=== PATIENT | male | born 1960 | race African-American/Black ===

== ENCOUNTER 2020-06-01 06:50 | Outpatient (REF) | payer MEDICARE, MEDICAID, SELFPAY | END 2020-06-01 06:51 | disposition home or self-care (01) | LOC: HO.LAB 06:50 | PROVIDERS: PCP Nurse Practitioner Family; Visit Provider Internal Medicine | DX: Z20.828 Contact with and (suspected) exposure to other viral communicable diseases (principal) | CPT/HCPCS: C9803; U0003 ==

== ENCOUNTER 2021-07-08 23:14 | Inpatient (IN) | payer MEDICARE, MEDICAID, SELFPAY ==
--- NOTE | 2021-07-09 01:52 | PC.ADMIT ---
Patient is a 60 year old male , who came from [facility] by ambulance. Admitted for depression and SI He is covid negative. States a medical history of lupus, high cholesterol, high blood pressure and lower back pain. He dose not have a current provider and is not being treated for any medical concern. Has past history of suicide attempt. He currently is not taking any medications. Poly substance use with positive tox screen cocain and cannabis.Denies auditory or visual hallucinations. Reports poor sleep and appetite. Patient admission was done by crisis assessment due to patient not wanting to answer questions at maria alejandra of his arrival to .
[2021-07-09 08:00] VITALS: BP 143/87; PULSE 69; RESP 16; TEMP 36.4; O2SAT 97
[2021-07-09] MEDS: Nicotine 21 MG PATCH.TD24 TRANSDERMA (10:07)
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
[2021-07-09] MEDS: Nicotine Polacrilex 2 MG GUM BUCCAL (19:37)
[2021-07-09 20:31] LABS: Vitamin D 25-OH Total 13.1 ng/mL (>30)
[2021-07-09 20:38] LABS: Vitamin B12 547 pg/mL (200-900)
[2021-07-09 22:00] VITALS: BP 145/75; PULSE 78; TEMP 36.8
[2021-07-10 06:00] VITALS: BP 139/81; PULSE 62; RESP 14; TEMP 36.6; O2SAT 98
[2021-07-10] MEDS: Nicotine 21 MG PATCH.TD24 TRANSDERMA ×2 (09:20→16:35)
--- NOTE | 2021-07-10 12:39 | HO.PSYCHPN ---
Subjective Subjective Date of Service: 07/10/21 Reason For Visit: Section 12 SI Subjective Notes: Conditional Voluntary Interim History: Stone has been refusing medication and does not participate in any aspect of treatment. There has been no behavioral dyscontrol. Review of Systems Review of Systems CVS: No c/o chest pain, palpitations, no SOB DATA INTEGRATION ARCHITECT: No c/o dizziness, headache GI: No c/o Nausea, Vomiting, diarrhea, constipation or heartburn -Denies hx of seizures -Denies hx of TBI/ concussion -Denies hx of cardiac issues other than HTN Mental Status Exam Mental Status Exam Narrative: A&O. In hospital attire, overweight, not malodorous. Good eye contact, attentive. No Tics or Tremors. No abnormal involuntary movements. Somewhat withdrawn and difficult to engage but ultimately cooperative and disclosing. Non-pressured speech, spontaneous with regular rate and rhythm, normal volume and prosody. No prolonged speech latency or dysarthria. Mood is ?depressed,? affect is constricted. Denies SI/SIB/HI upon inquiry. Denies A/VH or delusional thought content. Thoughts are coherent, organized, future oriented. No known cognitive or memory impairment. Insight/ Judgment fair and adequate. Diagnostics Vital Signs (24Hr): Vital Signs - 24 hr 07/09/21 22:00 07/10/21 06:00 Temperature 98.2 F 97.9 F Pulse Rate 78 62 Respiratory Rate 14 Blood Pressure 145/75 H 139/81 Pulse Oximetry 98 Labs Labs: Laboratory Results - last 48 hr 07/09/21 07/09/21 19:51 19:51 Vitamin B12 547 25-OH Vitamin D Total 13.1 Medications Medications Current Medications Acetaminophen (Acetaminophen 325 Mg Tablet) 650 mg PO Q6H PRN PRN Reason: Headache/Pain Mild Scale (1-3) Al Hydroxide/Mg Hydroxide (Magnesium Hydrox/Alum Hydrox 30 Ml Oral.Susp) 30 ml PO Q6H PRN PRN Reason: Heartburn/Nausea Hydroxyzine HCl (Hydroxyzine Hcl 50 Mg Tablet) 50 mg PO TID PRN PRN Reason: Anxiety Magnesium Hydroxide (Milk Of Magnesia 30 Ml Oral.Susp) 30 ml PO DAILY PRN PRN Reason: Constipation Nicotine (Nicotine 21 Mg Patch.Td24) 21 mg TRANSDERMA DAILY NEDRA Last Admin: 07/10/21 09:20 Dose: 21 mg Documented by: Nicotine Polacrilex (Nicotine Polacrilex 2 Mg Gum) 2 mg BUCCAL Q2H PRN PRN Reason: nicotine craving Last Admin: 07/09/21 19:37 Dose: 2 mg Documented by: Trazodone HCl (Trazodone Hcl 50 Mg Tablet) 50 mg PO BEDTIME PRN PRN Reason: Insomnia Allergies Allergies Allergy/AdvReac Type Severity Reaction Status Date / Time No Known Allergies Allergy Verified 07/09/21 02:00 Assessment & Plan Assessment & Plan (1) Cocaine use disorder: Status: Acute Code(s): F14.10 - Cocaine abuse, uncomplicated (2) MDD (major depressive disorder), recurrent episode, moderate: Status: Acute Code(s): F33.1 - Major depressive disorder, recurrent, moderate Assessment and Plan: Stone is a 60 y.o. Male who carries a dx of MDD, recurrent and cocaine use disorder. Pt disclosed increased depression and SI to his clinician at [facility], who called [facility] crisis and pt was brought to [facility] ED via ambulance. He reports sx of depression are chronic and intermittent and that he is usually able to wait for them to pass, however has been feeling more lonely and hopeless. He states he is often mistrustful of providers and people, identifies as a loner. Has supports and says he loves his work. He is future oriented, as he would like to be a aboriginal home school liaison officer/ peer support for people who are struggling with depression. Pt does not have outpt psych services. Hx of outpt therapy. Denies having benefit on past med trials. Plan: Discussed medications options for treating depression, however pt states he does not want to be on psychotropic medications due to past med trials and having SE on meds. Has not trialed lamictal, however he is not interested in this due to risk of rash. Pt reports he participated in individual outpt therapy for two years and found this helpful, would be interested in re-starting therapy. Discussed referral to [facility]. Will order vit B12 and vit D levels, as pt reports hx of low vit D but does not think he ever took supplements.?Would benefit from referral to Recovery Team. EKG ordered as this was not sent from [facility] and pt had cocaine in his system on arrival. Monitor response to medications. Monitor for safety in the milieu. Discharge on stabilization. Patient seen. Chart reviewed. Discussed with team. Obtain collateral contact info?as needed 07/10/21 No changes to the above I spent minutes with the patient and/or on the patient floor today, greater than?50% of which was spent counseling/coordinating care. Patient educated on: diagnosis and medication risk/benefits Informed Consent: does not understand Reason for contiued inpatient stay Substantial Risk for: rapid decompensation
[2021-07-10] MEDS: Nicotine Polacrilex 2 MG GUM BUCCAL ×2 (13:51→20:12)
[2021-07-10 20:10] VITALS: BP 131/74; PULSE 77; TEMP 36.8
[2021-07-11] MEDS: traZODone HCL 50 MG TABLET PO ×2 (00:08→01:22)
[2021-07-11] MEDS: Magnesium Hydrox/Alum Hydrox 30 ML ORAL.SUSP PO ×2 (00:09→23:12)
[2021-07-11 11:17] VITALS: BP 133/73; PULSE 97; RESP 18; TEMP 37; O2SAT 100
[2021-07-11] MEDS: Acetaminophen 325 MG TABLET 650 MG PO (14:51)
--- NOTE | 2021-07-11 18:54 | P.PNPSI_ITS ---
Subjective Subjective Date of Service: 07/11/21 Reason For Visit: Section 12 SI Subjective Notes: Conditional Voluntary Interim History: Stone has been more engaged with treatment. He reports that he has not been sleeping and that trazodone gives him a headache. We agreed to seroquel. There has been no behavioral dyscontrol. 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 In hospital attire, overweight, not malodorous. Good eye contact, attentive. No Tics or Tremors. No abnormal involuntary movements. Somewhat withdrawn and difficult to engage but ultimately cooperative and disclosing. Non-pressured speech, spontaneous with regular rate and rhythm, normal volume and prosody. No prolonged speech latency or dysarthria. Mood is ?depressed,? affect is constricted. Denies SI/SIB/HI upon inquiry. Denies A/VH or delusional thought content. Thoughts are coherent, organized, future oriented. No known cognitive or memory impairment. Insight/ Judgment fair and adequate. Diagnostics Vital Signs (24Hr): Vital Signs - 24 hr 07/10/21 20:10 07/11/21 11:17 Temperature 98.2 F 98.6 F Pulse Rate 77 97 Respiratory Rate 18 Blood Pressure 131/74 133/73 Pulse Oximetry 100 Labs Labs: Laboratory Results - last 48 hr 07/09/21 07/09/21 19:51 19:51 Vitamin B12 547 25-OH Vitamin D Total 13.1 Medications Medications Current Medications Acetaminophen (Acetaminophen 325 Mg Tablet) 650 mg PO Q6H PRN PRN Reason: Headache/Pain Mild Scale (1-3) Last Admin: 07/11/21 14:51 Dose: 650 mg Documented by: Al Hydroxide/Mg Hydroxide (Magnesium Hydrox/Alum Hydrox 30 Ml Oral.Susp) 30 ml PO Q6H PRN PRN Reason: Heartburn/Nausea Last Admin: 07/11/21 00:09 Dose: 30 ml Documented by: Hydroxyzine HCl (Hydroxyzine Hcl 50 Mg Tablet) 50 mg PO TID PRN PRN Reason: Anxiety Magnesium Hydroxide (Milk Of Magnesia 30 Ml Oral.Susp) 30 ml PO DAILY PRN PRN Reason: Constipation Nicotine (Nicotine 21 Mg Patch.Td24) 21 mg TRANSDERMA DAILY NEDRA Last Admin: 07/11/21 12:01 Dose: Not Given Documented by: Nicotine Polacrilex (Nicotine Polacrilex 2 Mg Gum) 2 mg BUCCAL Q2H PRN PRN Reason: nicotine craving Last Admin: 07/10/21 20:12 Dose: 2 mg Documented by: Quetiapine Fumarate (Quetiapine Fumarate 100 Mg Tablet) 100 mg PO BEDTIME NEDRA Allergies Allergies Allergy/AdvReac Type Severity Reaction Status Date / Time No Known Allergies Allergy Verified 07/09/21 02:00 Assessment & Plan Assessment & Plan (1) Cocaine use disorder: Status: Acute Code(s): F14.10 - Cocaine abuse, uncomplicated (2) MDD (major depressive disorder), recurrent episode, moderate: Status: Acute Code(s): F33.1 - Major depressive disorder, recurrent, moderate Assessment and Plan: Stone is a 60 y.o. Male who carries a dx of MDD, recurrent and cocaine use disorder. Pt disclosed increased depression and SI to his clinician at [facility], who called [facility] crisis and pt was brought to [facility] ED via ambulance. He reports sx of depression are chronic and intermittent and that he is usually able to wait for them to pass, however has been feeling more lonely and hopeless. He states he is often mistrustful of providers and people, identifies as a loner. Has supports and says he loves his work. 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 Pt does not have outpt psych services. Hx of outpt therapy. Denies having benefit on past med trials. Plan: Discussed medications options for treating depression, however pt states he does not want to be on psychotropic medications due to past med trials and having SE on meds. Has not trialed lamictal, however he is not interested in this due to risk of rash. Pt reports he participated in individual outpt therapy for two years and found this helpful, would be interested in re-starting therapy. Discussed referral to [facility]. Will order vit B12 and vit D levels, as pt reports hx of low vit D but does not think he ever took supplements.?Would benefit from referral to Recovery Team. EKG ordered as this was not sent from [facility] and pt had cocaine in his system on arrival. Monitor response to medications. Monitor for safety in the milieu. Discharge on stabilization. Patient seen. Chart reviewed. Discussed with team. Obtain collateral contact info?as needed 07/10/21 No changes to the above 07/11/21 Seroquel for sleep I spent minutes with the patient and/or on the patient floor today, greater than?50% of which was spent counseling/coordinating care. Patient educated on: medication risk/benefits Informed Consent: further education needed Reason for contiued inpatient stay Substantial Risk for: rapid decompensation
[2021-07-11 19:09] VITALS: BP 117/64; PULSE 78; RESP 18; TEMP 36.4; O2SAT 98
[2021-07-11] MEDS: Butalb/Acetamin/Caff 50/325/40 TABLET 1 TAB PO (21:17)
[2021-07-11] MEDS: hydrOXYzine HCL 50 MG TABLET PO (21:17)
[2021-07-11] MEDS: Melatonin 3 MG TABLET 6 MG PO (23:36)
[2021-07-12] MEDS: Nicotine Polacrilex 2 MG GUM BUCCAL ×2 (15:12→20:36)
[2021-07-12 18:00] VITALS: BP 132/72; PULSE 71; TEMP 36.2; O2SAT 96
--- NOTE | 2021-07-12 18:46 | HO.PSYCHPN ---
Subjective Subjective Date of Service: 07/12/21 Reason For Visit: Section 12 SI Subjective Notes: Helm Warning, Conditional Voluntary and 3 Day Healthcare Proxy: No Guardianship: No Medical Problems Affecting Mental Status: No Interim History: Patient seen and discussed with team. Patient evaluated this morning and upon interview he reports he is alright. Reviewed lab work for vit D and B12. Says he is willing to start therapy at [facility]. He has been participating in groups. He reports poor sleep and lack of benefit on trazodone and seroquel. Has hx of sleep apnea but says he was unable to tolerate the CPAP due to it popping out his jaw. In the milieu, patient is safe and appropriate in behavior. Denies SI/SIB/HI upon inquiry. Denies irritability or assaultive ideation. Says he feels safe. Medication Compliance: Yes Side effects from medications: No Attending Groups: Yes Review of Systems Acute medical concerns: No Medical Review of Systems: unchanged Mental Status Exam Mental Status Exam Narrative: A&O. In hospital attire, overweight, not malodorous. Good eye contact, attentive. No Tics or Tremors. No abnormal involuntary movements. Calm, cooperative, eating ice cream. Non-pressured speech, spontaneous with regular rate and rhythm, normal volume and prosody. No prolonged speech latency or dysarthria. Mood is ?alright,? affect is appropriate. Denies SI/SIB/HI upon inquiry. Denies A/VH or delusional thought content. Thoughts are coherent, organized, future oriented. No known cognitive or memory impairment. Insight/ Judgment fair and adequate. Diagnostics Vital Signs (24Hr): Vital Signs - 24 hr 07/11/21 19:09 Temperature 97.6 F Pulse Rate 78 Respiratory Rate 18 Blood Pressure 117/64 Pulse Oximetry 98 Medications Medications Current Medications Acetaminophen (Acetaminophen 325 Mg Tablet) 650 mg PO Q6H PRN PRN Reason: Headache/Pain Mild Scale (1-3) Last Admin: 07/11/21 14:51 Dose: 650 mg Documented by: Al Hydroxide/Mg Hydroxide (Magnesium Hydrox/Alum Hydrox 30 Ml Oral.Susp) 30 ml PO Q6H PRN PRN Reason: Heartburn/Nausea Last Admin: 07/11/21 23:12 Dose: 30 ml Documented by: Chlorpromazine HCl (Chlorpromazine Hcl 25 Mg Tablet) 50 mg PO BEDTIME NEDRA Hydroxyzine HCl (Hydroxyzine Hcl 50 Mg Tablet) 50 mg PO TID PRN PRN Reason: Anxiety Last Admin: 07/11/21 21:17 Dose: 50 mg Documented by: Magnesium Hydroxide (Milk Of Magnesia 30 Ml Oral.Susp) 30 ml PO DAILY PRN PRN Reason: Constipation Melatonin (Melatonin 3 Mg Tablet) 6 mg PO BEDTIME PRN PRN Reason: Sleep Last Admin: 07/11/21 23:36 Dose: 6 mg Documented by: Nicotine (Nicotine 21 Mg Patch.Td24) 21 mg TRANSDERMA DAILY NEDRA Last Admin: 07/12/21 11:07 Dose: Not Given Documented by: Nicotine Polacrilex (Nicotine Polacrilex 2 Mg Gum) 2 mg BUCCAL Q2H PRN PRN Reason: nicotine craving Last Admin: 07/12/21 15:12 Dose: 2 mg Documented by: Allergies Allergies Allergy/AdvReac Type Severity Reaction Status Date / Time No Known Allergies Allergy Verified 07/09/21 02:00 Assessment & Plan Assessment & Plan (1) Cocaine use disorder: Status: Acute Code(s): F14.10 - Cocaine abuse, uncomplicated (2) MDD (major depressive disorder), recurrent episode, moderate: Status: Acute Code(s): F33.1 - Major depressive disorder, recurrent, moderate Assessment and Plan: Stone is a 60 y.o. Male who carries a dx of MDD, recurrent and cocaine use disorder. Pt disclosed increased depression and SI to his clinician at [facility], who called [facility] crisis and pt was brought to [facility] ED via ambulance. He reports sx of depression are chronic and intermittent and that he is usually able to wait for them to pass, however has been feeling more lonely and hopeless. He states he is often mistrustful of providers and people, identifies as a loner. Has supports and says he loves his work. 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 Pt does not have outpt psych services. Hx of outpt therapy. Denies having benefit on past med trials. Plan: Discussed medications options for treating depression, however pt states he does not want to be on psychotropic medications due to past med trials and having SE on meds. Has not trialed lamictal, however he is not interested in this due to risk of rash. Pt reports he participated in individual outpt therapy for two years and found this helpful, would be interested in re-starting therapy. Discussed referral to [facility]. Will order vit B12 and vit D levels, as pt reports hx of low vit D but does not think he ever took supplements.?Would benefit from referral to Recovery Team. EKG ordered as this was not sent from [facility] and pt had cocaine in his system on arrival. Monitor response to medications. Monitor for safety in the milieu. Discharge on stabilization. Patient seen. Chart reviewed. Discussed with team. Obtain collateral contact info?as needed 07/10/21 No changes to the above 07/11/21 Seroquel for sleep 07/12/21: Pt denies benefit on seroquel and trazodone for sleep, willing to trial thorazine 50 mg QHS but reluctant to trial medications in general and in particular thorazine due to thorazine shuffle. Discussed that likely sleep aids will have little benefit due to untreated sleep apnea, would benefit from referral to sleep clinic. Will start vit D supplement due to vit D level on lower limit of normal. I spent minutes with the patient and/or on the patient floor today, greater than?50% of which was spent counseling/coordinating care. Reason for contiued inpatient stay Substantial Risk for: rapid decompensation and med/psych decompensation
[2021-07-12] MEDS: chlorproMAZINE HCl 25 MG TABLET 50 MG PO (22:25)
[2021-07-12] MEDS: hydrOXYzine HCL 50 MG TABLET PO (23:36)
[2021-07-12] MEDS: Melatonin 3 MG TABLET 6 MG PO (23:36)
--- NOTE | 2021-07-13 10:23 | HO.PSYCHPN ---
Subjective Subjective Date of Service: 07/13/21 Reason For Visit: Section 12 SI Interim History: Patient seen and discussed with team. Patient evaluated this morning and upon interview patient reports he is ready for discharge. Says he plans to follow up with his PCP, Dr. Yue Fish regarding his sleep apnea. Pt reports lack of benefit on thorazine for sleep, still only sleeping 2-3 hours at a time. He currently denies SI/SIB/HI upon inquiry and says he feels safe to leave. Says the groups have been helpful and that as men, we are brought up not to show emotions, but sharing has been helpful. Discussed his HTN, however he adamantly refuses medication to treat this. In the milieu, patient is safe and appropriate in behavior. Denies irritability or assaultive ideation. Medication Compliance: Yes Side effects from medications: No Attending Groups: Yes Review of Systems Acute medical concerns: No Medical Review of Systems: unchanged Mental Status Exam Mental Status Exam Narrative: In hospital attire, overweight, not malodorous. Good eye contact, attentive. No Tics or Tremors. No abnormal involuntary movements. Calm, cooperative, engaged. Non-pressured speech, spontaneous with regular rate and rhythm, normal volume and prosody. No prolonged speech latency or dysarthria. Mood is ?better,? affect is appropriate. Denies SI/SIB/HI upon inquiry. Denies A/VH or delusional thought content. Thoughts are coherent, organized, future oriented. No known cognitive or memory impairment. Insight/ Judgment fair and adequate. Diagnostics Vital Signs (24Hr): Vital Signs - 24 hr 07/12/21 18:00 Temperature 97.1 F Pulse Rate 71 Blood Pressure 132/72 Pulse Oximetry 96 Medications Medications Current Medications Acetaminophen (Acetaminophen 325 Mg Tablet) 650 mg PO Q6H PRN PRN Reason: Headache/Pain Mild Scale (1-3) Last Admin: 07/11/21 14:51 Dose: 650 mg Documented by: Al Hydroxide/Mg Hydroxide (Magnesium Hydrox/Alum Hydrox 30 Ml Oral.Susp) 30 ml PO Q6H PRN PRN Reason: Heartburn/Nausea Last Admin: 07/11/21 23:12 Dose: 30 ml Documented by: Chlorpromazine HCl (Chlorpromazine Hcl 25 Mg Tablet) 50 mg PO BEDTIME NEDRA Last Admin: 07/12/21 22:25 Dose: 50 mg Documented by: Hydroxyzine HCl (Hydroxyzine Hcl 50 Mg Tablet) 50 mg PO TID PRN PRN Reason: Anxiety Last Admin: 07/12/21 23:36 Dose: 50 mg Documented by: Magnesium Hydroxide (Milk Of Magnesia 30 Ml Oral.Susp) 30 ml PO DAILY PRN PRN Reason: Constipation Melatonin (Melatonin 3 Mg Tablet) 6 mg PO BEDTIME PRN PRN Reason: Sleep Last Admin: 07/12/21 23:36 Dose: 6 mg Documented by: Nicotine (Nicotine 21 Mg Patch.Td24) 21 mg TRANSDERMA DAILY [facility] Last Admin: 07/13/21 09:18 Dose: Not Given Documented by: Nicotine Polacrilex (Nicotine Polacrilex 2 Mg Gum) 2 mg BUCCAL Q2H PRN PRN Reason: nicotine craving Last Admin: 07/12/21 20:36 Dose: 2 mg Documented by: Vitamin D (Cholecalciferol (Vitamin D3) 25 Mcg Tablet) 25 mcg PO DAILY [facility] Last Admin: 07/13/21 09:17 Dose: Not Given Documented by: Allergies Allergies Allergy/AdvReac Type Severity Reaction Status Date / Time No Known Allergies Allergy Verified 07/09/21 02:00 Assessment & Plan Assessment & Plan (1) Cocaine use disorder: Status: Acute Code(s): F14.10 - Cocaine abuse, uncomplicated (2) MDD (major depressive disorder), recurrent episode, moderate: Status: Acute Code(s): F33.1 - Major depressive disorder, recurrent, moderate Plan Stone is a 60 y.o. Male who carries a dx of MDD, recurrent and cocaine use disorder. Pt disclosed increased depression and SI to his clinician at [facility], who called [facility] crisis and pt was brought to [facility] ED via ambulance. He reports sx of depression are chronic and intermittent and that he is usually able to wait for them to pass, however has been feeling more lonely and hopeless. He states he is often mistrustful of providers and people, identifies as a loner. Has supports and says he loves his work. 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 Pt does not have outpt psych services. Hx of outpt therapy. Denies having benefit on past med trials. Plan: Discussed medications options for treating depression, however pt states he does not want to be on psychotropic medications due to past med trials and having SE on meds. Has not trialed lamictal, however he is not interested in this due to risk of rash. Pt reports he participated in individual outpt therapy for two years and found this helpful, would be interested in re-starting therapy. Discussed referral to [facility]. Will order vit B12 and vit D levels, as pt reports hx of low vit D but does not think he ever took supplements.?Would benefit from referral to Recovery Team. EKG ordered as this was not sent from [facility] and pt had cocaine in his system on arrival. Monitor response to medications. Monitor for safety in the milieu. Discharge on stabilization. Patient seen. Chart reviewed. Discussed with team. Obtain collateral contact info?as needed 07/10/21 No changes to the above 07/11/21 Seroquel for sleep 07/12/21: Pt denies benefit on seroquel and trazodone for sleep, willing to trial thorazine 50 mg QHS but reluctant to trial medications in general and in particular thorazine due to thorazine shuffle. Discussed that likely sleep aids will have little benefit due to untreated sleep apnea, would benefit from referral to sleep clinic. Will start vit D supplement due to vit D level on lower limit of normal. 07/13/21: Pt denies benefit on thorazine, does not want to continue med trials for insomnia. Wants to continue on vit D. Refuses treatment for HTN. States he feels safe for discharge. Will honor this request, as pt is stable and there are no concerns for imminent safety risks. I spent minutes with the patient and/or on the patient floor today, greater than?50% of which was spent counseling/coordinating care. Reason for contiued inpatient stay Substantial Risk for: stable for discharge
[2021-07-13] MEDS: Nicotine Polacrilex 2 MG GUM BUCCAL (11:20)
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
== END 2021-07-13 14:20 | disposition home or self-care (01) | DRG 885 ==
PROVIDERS: Registered Nurse; Admitting Provider Psychiatry & Neurology Psychiatry; PCP Nurse Practitioner Family; Visit Provider Psychiatry & Neurology Psychiatry
DX: F33.1 Major depressive disorder, recurrent, moderate (principal); R45.851 Suicidal ideations; F14.10 Cocaine abuse, uncomplicated; Z79.899 Other long term (current) drug therapy
CPT/HCPCS: 36415; 82306; 82607